=== PATIENT | female | born 1980 | race Caucasian/White ===

== ENCOUNTER 2023-03-21 00:11 | Emergency (ER) | payer MEDICAID, SELFPAY ==
--- NOTE | ~2023-03-21 | XR_ITS ---
EXAMINATION: XR ankle LT min 3V DATE: 03/21/2023 03:16 INDICATION: Left ankle pain TECHNIQUE: Anteroposterior, lateral, mortise, and additional oblique view of the ankle were obtained. COMPARISON: None. FINDINGS: There is mild soft tissue swelling of ankle. Bone alignment of the ankle is normal. There i s no ankle fracture. Calcified atherosclerosis is noted. Changes in the bases of the fourth and fifth metatarsals and cuboid are described on foot radiographs. Six round foreign bodies project lateral t o the base of the fifth metatarsal, likely antibiotic beads. IMPRESSION: 1. No acute osseous abnormality of the ankle. Reviewed, dictated and finalized at location F.
--- NOTE | ~2023-03-21 | XR_ITS ---
EXAMINATION: XR foot LT min 3V DATE: 03/21/2023 03:16 INDICATION: Left foot pain, redness and swelling, recent foot surgery TECHNIQUE: Dorsoplantar, lateral, and 2 oblique views of the left foot were obtained. COMPARISON: None. FINDINGS: There is osteopenia in the bases of the fourth and fifth metatarsals and the anterolateral aspect of the cuboid. Associated osseous irregularity may be due to surgical change or osteomyelitis. Six round radiopaque foreign bodies project lateral to the base of the fifth metatarsal, likely anti biotic beads. There is a comminuted fracture of the first distal phalanx. A mildly comminuted fractur e of the fifth proximal phalanx is also noted. IMPRESSION: 1. Osteopenia in the bases of the fourth and fifth metatarsals and anterolateral aspect of the cuboid which could reflect surgical change and/or osteomyelitis. 2. Comminuted fractures of the first distal phalanx and fifth proximal phalanx. Reviewed, dictated and finalized at location F. IMPRESSION: 1. Osteopenia in the bases of the fourth and fifth metatarsals and anterolatera l aspect of the cuboid which could reflect surgical change and/or osteomyelitis . 2. Comminuted fractures of the first distal phalanx and fifth proximal phalanx.
[2023-03-21] MEDS: ACETAMINOPHEN 500 MG TABLET 1000 MG PO (03:16)
[2023-03-21 03:19] LABS: Basophils Absolute Auto 0.1 K/mm3 (0.0-0.1); Basophils Percent Auto 0.8 % (0.2-1.2); Eosinophils Absolute Auto 0.2 K/mm3 (0-0.3); Eosinophils Percent Auto 2.8 % (0-4.4); Hematocrit 35.2 % (37.0-47.0); Hemoglobin 10.3 g/dL (12.0-15.0); Immature Granulocyte Absolute 0.04 K/mm3 (0.00-0.031); Immature Granulocyte Percent A 0.5 % (0-0.5); Lymphocytes Absolute Auto 1.54 K/mm3 (0.9-3.2); Lymphocytes Percent Auto 20.9 % (18.3-44.2); Mean Corpuscular HGB Conc 29.3 g/dl (32-36); Mean Corpuscular Hemoglobin 28.6 pg (26-34); Mean Corpuscular Volume 97.8 fl (80-100); Mean Platelet Volume 11.4 fl (7.4-10.4); Monocytes Absolute Auto 0.7 K/mm3 (0.1-0.6); Monocytes Percent Auto 9.3 % (2.6-8.5); Neutrophils Absolute Auto 4.8 K/mm3 (1.3-6.7); Neutrophils Percent Auto 65.7 % (45.5-73.1); Platelet Count Result 291 k/mm3 (150-375); Red Cell Distribution Width 14.2 % (11.5-14.5); White Blood Count 7.4 K/mm3 (4.5-10.0)
[2023-03-21 04:05] LABS: Erythrocyte Sedimentation Rate 62 mm/hr (0-20)
[2023-03-21 04:08] LABS: Alanine Aminotransferase 15 U/L (6-35); Albumin Level 3.8 g/dL (3.5-5.1); Alkaline Phosphatase 98 U/L (38-126); Anion Gap 10 mmol/L (8-16); Aspartate Amino Transferase 19 U/L (14-36); Bilirubin,Total 0.5 mg/dL (0.2-1.3); Blood Urea Nitrogen 22 mg/dL (7-17); CRP 3.4 mg/dL (<1.0); Calcium 9.7 mg/dL (8.4-10.2); Carbon Dioxide 25 mmol/L (22-30); Chloride 92 mmol/L (98-107); Estimated Glomerular Filt Rate 54; Glucose 693 mg/dL (65-110); Potassium 4.3 mmol/L (3.4-5.0); Sodium 127 mmol/L (137-145)
--- NOTE | 2023-03-21 04:30 | PC.NURSE ---
Pt not leaving pulse ox on despite multiple conversations regarding importance.
[2023-03-21] MEDS: LACTATED RINGERS 2,000 ML 999 ML IV CONT (04:39)
[2023-03-21] MEDS: INSULIN HUMAN REGULAR (*BKC) 100 UNITS/ML 10 UNITS IV PUSH (04:39)
[2023-03-21 04:53] LABS: Beta-Hydroxybutyrate/Acetoacetate 0.04 mmol/L (0.02-0.27)
[2023-03-21 04:57] LABS: Fractional Inspired Oxygen 21 %; HCO3 VBG 27.4 mEq/l (24.0-30.0); PCO2 VBG 45.8 mmHg (42.0-48.0); PO2 VBG < 27.0 mmHg (35.0-45.0); pH VBG 7.395 (7.300-7.400)
[2023-03-21 04:58] LABS: Device ROOM AIR
[2023-03-21 05:00] VITALS: BP 148/96; PULSE 94; RESP 18; O2SAT 100
[2023-03-21 05:51] LABS: Glucose Point of Care 234 mg/dl (65-105)
[2023-03-21 06:00] VITALS: BP 182/99; PULSE 97; RESP 16
[2023-03-21 06:15] VITALS: BP 193/103; PULSE 97; RESP 16
[2023-03-21] MEDS: oxyCODONE/ACETAMINOPHEN (*CRX) 5-325 MG TABLET 1 TABLET PO (06:40)
--- NOTE | 2023-03-21 07:24 | PC.NURSE ---
Report to RAVEN Izquierdo
--- NOTE | 2023-03-21 08:01 | ED.LOWEXIN ---
HPI - Extremity Injury (Lower) General Chief Complaint: Extremity Injury, Lower Stated Complaint: infection left foot Time Seen by Provider: 03/21/23 01:58 History of Present Illness HPI Narrative: This is a 42-year-old female, with history of left foot osteomyelitis status post debridement of the bone, who presents emergency department with left foot pain and swelling after tripping in a pool. Patient states she was wearing a hard soled shoe, walking downstairs at a hotel pool, when she slipped and felt a pop in the left foot with immediate onset of 7/10 pain. This was accompanied by swelling and redness of the left foot. She denies fevers, chills or bleeding. Related Data Allergies Allergy/AdvReac Type Severity Reaction Status Date / Time Sulfa (Sulfonamide Allergy Mild Joint Pain Verified 03/21/23 01:31 Antibiotics) adhesive tape Allergy Blister Verified 03/21/23 01:32 Review of Systems Review of Systems: CONSTITUTIONAL: Denies fever, chills, or sweats. CARDIOVASCULAR: Denies chest pain, palpitations, or edema. RESPIRATORY: Denies cough or dyspnea. GASTROINTESTINAL: Denies abdominal pain, nausea, vomiting, or diarrhea. GENITOURINARY: Denies dysuria or hematuria. SKIN: Denies rash or itching. MUSCULOSKELETAL: Left foot pain denies back pain, or myalgia. NEUROLOGIC: Denies headache, numbness, dizziness, or weakness. PSYCHIATRIC: Denies anxiety or depression. PMFSH Past Medical History Medical History Diabetes mellitus Osteomyelitis of left foot Surgical History Surgical History Status post debridement Social History Social History Smoking status: Former smoker Alcohol intake: never Substance use: never Exam Narrative: GENERAL: Well-developed, well-nourished, mild distress due to pain HEAD: Normocephalic, atraumatic. EYES: PERRLA and EOMI. CHEST: Clear to auscultation. No respiratory distress. No wheezes rales or rhonchi HEART: Regular rate and rhythm. No murmur heard. Normal peripheral pulses. ABDOMEN: Soft, nontender, nondistended, normal active bowel sounds. EXTREMITIES: Erythema and swelling of the left foot, with tenderness to palpation at the distal aspect of the fifth metatarsal. Tender to palpation at the first and fifth distal toes. There is a healing wound noted to the lateral aspect of the left foot. Normal range of motion. No edema. SKIN: Warm, dry, no rash. NEURO: Alert and oriented x3. Moving all 4 limbs purposefully. PSYCH: Normal mood and affect. Course Course Emergency Course: 07:50 - CBC demonstrates a normal white blood cell count of 7.4. Hemoglobin of 10.3. ESR and CRP elevated at 62 and 3.4 respectively. Chemistries demonstrate hyperglycemia with glucose of 693 that improved with IV fluids and insulin to 234. Creatinine 1.1 with an unknown baseline. Corrected sodium 136. The patient's VBG was not concerning for acidemia. Beta hydroxybutyrate was within normal limits. I suspect the patient had an episode of hyperglycemia without DKA. X-ray of the foot demonstrates fractures of the first and fifth distal phalanges. I am concerned for proximal left fifth metatarsal fracture. Antibiotic impregnated beads are noted in the foot. Changes noted to the proximal fifth metatarsal consistent with surgery versus osteomyelitis. I suspect these are related to the patient's previous surgery. I suspect the patient's pain and swelling is related to fracture as opposed to infection. The posterior leg splint was placed with preserved neurovascular function. 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 The patient politely declined opioid pain medications and will manage pain at home with Tylenol. Discussed return and emergency precautions including signs/sympt
[2023-03-21 08:13] VITALS: BP 180/95; PULSE 95; RESP 18; O2SAT 100
== END 2023-03-21 08:42 | disposition home or self-care (01) ==
PROVIDERS: Emergency Provider Preventive Medicine Aerospace Medicine
DX: S92.422A Displaced fracture of distal phalanx of left great toe, initial encounter for closed fracture (principal); S92.512A Displaced fracture of proximal phalanx of left lesser toe(s), initial encounter for closed fracture; S92.355A Nondisplaced fracture of fifth metatarsal bone, left foot, initial encounter for closed fracture; E11.9 Type 2 diabetes mellitus without complications; Z87.891 Personal history of nicotine dependence; M85.872 Other specified disorders of bone density and structure, left ankle and foot; W10.8XXA Fall (on) (from) other stairs and steps, initial encounter
CPT/HCPCS: 29515; 36415; 73610; 73630; 80053; 82010; 82803; 82948; 85025; 85652; 86140; 96361; 96374; 99284; A9270; J1815; J7120